=== PATIENT | male | born 1980 | race African-American/Black ===

== ENCOUNTER 2017-09-07 15:32 | Emergency (ER) | payer OTHER ==
[2017-09-07 16:00] VITALS: BP 136/79; PULSE 93; TEMP 98; BMI 30.2
--- NOTE | 2017-09-07 16:22 | PDOC ---
History of Present Illness - General Chief Complaint: Back Pain Stated Complaint: FALL/BACK PAIN Time Seen by Provider: 09/07/17 16:14 History Source: Patient Exam Limitations: No Limitations - History of Present Illness Initial Comments: 09/07/17 16:15 slipped and fell onto right buttock and low back. Complaints of pain and spasm to lumbar spinous area. No head injury, no extremity injury. 09/07/17 16:42 Occurred: reports: just prior to arrival Severity: reports: moderate Pain Location: reports: back, lower extremity Method of Injury: Yes: direct blow, fall Modifying Factors: improves with: None Loss of Consciousness: no loss of consciousness Past History - Travel Traveled outside of the country in the last 30 days: No Close contact w/someone who was outside of country & ill: No - Past Medical History Allergies/Adverse Reactions: Allergies Allergy/AdvReac Type Severity Reaction Status Date / Time No Known Allergies Allergy Verified 09/07/17 16:00 Home Medications: Ambulatory Orders Cyclobenzaprine HCl [Flexeril 10 mg] 10 mg PO BID PRN #14 tablet 09/07/17 Naproxen [Naprosyn -] 500 mg PO BID #14 tablet 09/07/17 COPD: No Diabetes: Yes (niddm) - Suicide/Smoking/Psychosocial Hx Smoking History: Current every day smoker Number of Cigarettes Smoked Daily: 6 Information on smoking cessation initiated: No Review of Systems - Review of Systems Able to Perform ROS?: Yes Is the patient limited [place] proficient: Yes Constitutional: Yes: Symptoms Reported, See HPI, Malaise HEENTM: Yes: Symptoms Reported Respiratory: No: Symptoms reported Cardiac (ROS): No: Symptoms Reported Musculoskeletal: Yes: Symptoms Reported, See HPI, Back Pain, Muscle Pain. No: Joint Pain Integumentary: Yes: See HPI. No: Symptoms Reported Neurological: Yes: Symptoms reported All Other Systems: Reviewed and Negative *Physical Exam - Vital Signs Last Vital Signs Temp Pulse Resp BP Pulse Ox 98 F 93 H 18 136/79 99 09/07/17 15:56 09/07/17 15:56 09/07/17 15:56 09/07/17 15:56 09/07/17 15:56 - Physical Exam General Appearance: Yes: Nourished, Appropriately Dressed, Apparent Distress, Mild Distress, Moderate Distress HEENT: positive: [place], Normal ENT Inspection, TMs Normal, Pharynx Normal Neck: positive: Supple Respiratory/Chest: positive: Lungs Clear Gastrointestinal/Abdominal: positive: Soft. negative: Tender Musculoskeletal: positive: Normal Inspection, Decreased Range of Motion, Muscle Spasm (palpable spasm and hematoma to right paraischial area and pelvis. Ambulatory but complaints of spasmodic pain in his right gluteus area. Palpable hematoma approximately 15 cm x 15 cm in same right sided low back. Nose to spine pain crepitus or step-offs. Neurovascular intact to legs). negative: Vertebral Tenderness Progress Note - Progress Note Progress Note: Fall with hematoma and back strain. We'll treat with NSAIDs and cyclobenzaprine *DC/Admit/Observation/Transfer Diagnosis at time of Disposition: Lumbar back sprain Qualifiers: Encounter type: initial encounter Qualified Code(s): S33.5XXA - Sprain of ligaments of lumbar spine, initial encounter - Discharge Dispostion Disposition: HOME Condition at time of disposition: Stable Admit: No - Referrals Referrals: Peter Baptiste MD [Staff Physician] - - Patient Instructions Printed Discharge Instructions: DI for Back Strain or Sprain Additional Instructions: Rest, no heavy lifting or exercise until pain is resolved Hot soaks to neck and low back as often as possible/hot showers or Jacuzzis No massage or therapy until spasm is gone Continue Naprosyn 1 - 500mg tablet every 8 hours for t 3 days then as needed for pain and swelling Cyclobenzaprine 1-10mg every 8 hours as needed for spasm If not significant improvement within 24 hours with medication and rest regime, followup with private physician for change in medications and /or therapy. - Post Discharge Activity Forms/Work/School Notes: Back to Work
[2017-09-07] MEDS ORDERED: KETOROLAC TROMETHAMINE 60 MG/2 ML VIAL IM ONE (16:37)
[2017-09-07] MEDS ORDERED: KETOROLAC TROMETHAMINE 60 MG/2 ML VIAL ONE (16:49)
== END 2017-09-07 16:53 | disposition home or self-care (01) ==
LOC: JERFT 15:32
PROC: 3E0233Z Introduction of Anti-inflammatory into Muscle, Percutaneous Approach (ICD-10-PCS; principal; 2017-09-07)
DX: S33.5XXA Sprain of ligaments of lumbar spine, initial encounter (principal); S30.0XXA Contusion of lower back and pelvis, initial encounter; W01.0XXA Fall on same level from slipping, tripping and stumbling without subsequent striking against object, initial encounter; Y93.89 Activity, other specified; Y92.89 Other specified places as the place of occurrence of the external cause; Y99.8 Other external cause status; E11.9 Type 2 diabetes mellitus without complications; Z79.84 Long term (current) use of oral hypoglycemic drugs; F17.210 Nicotine dependence, cigarettes, uncomplicated
CPT/HCPCS: 96372; 99281-25